=== PATIENT | male | born 1935 | race Caucasian/White ===

== ENCOUNTER 2017-10-20 01:15 | Observation (INO) | payer MEDICARE ==
[2017-10-20] MEDS ORDERED: Ondansetron HCl/PF 4 MG/2 ML Vial IVP PRN ×2 (04:35→07:43)
[2017-10-20] MEDS ORDERED: Ondansetron ODT 4 MG TAB SL PRN (04:35)
[2017-10-20] MEDS ORDERED: Sodium Chloride 0.9% 1,000 ML IV SCH (04:35)
[2017-10-20 04:45] VITALS: BMI 21.6
[2017-10-20] MEDS ORDERED: Acetaminophen 325 MG TAB PO PRN (07:43)
[2017-10-20] MEDS ORDERED: Meclizine HCl 25 MG TAB PO PRN (07:45)
[2017-10-20 08:17] LABS: #Lymphocytes 0.9 thou/uL (1.20-3.40); #Monocytes 0.4 thou/uL (0.11-0.59); #Neutrophils 4.1 thou/uL (1.40-6.50); %Basophils 0.7 % (0.0-1.0); %Eosinophils 0.4 % (0.0-10.0); %Lymphocytes 15.8 % (21.0-51.0); %Monocytes 6.8 % (0.0-10.0); %Neutrophils 76.4 % (42.0-75.0); Hemoglobin 10.1 g/dL (14.0-18.0); Mean Corpuscular HGB CONC 33.9 g/dL (32.0-36.0); Mean Corpuscular Hemoglobin 35.1 pg (27.0-31.0); Mean Platelet Volume 7.9 fL (7.4-10.4); Platelet Count 125 thou/uL (130-400); RBC Distribution Width 14.8 % (11.5-14.5); Red Blood Cell (RBC) Count 2.87 mill/uL (4.70-6.10); White Blood Cell (WBC) Count 5.4 thou/uL (4.8-10.8)
--- NOTE | 2017-10-20 08:41 | HP ---
PRIMARY CARE PROVIDER: Currently, Dr. Persaud in [place]. The patient referred to the [facility] by [facility] after transf er from [facility]. HISTORY OF PRESENT ILLNESS: The patient developed acute vertigo about 9:00 p.m. yesterday, unable to walk, crawled to the bathroom. He had a knot in his stomach. He had nausea, vomiting, sweating. H e states he was short of breath. He was taken to [facility] in [place] where he got IV medicati ons and is better. He has a minimal feeling of motion now, but no true vertigo. He had no headache and no focal weakness. 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 CURRENT MEDICATIONS: Fosamax 70 mg a week, AndroGel metered dose pump, Symbicort 164.5 two inhalatio ns twice a day, clonazepam 0.5 mg at bedtime, Flonase 50 mcg a day. PAST SURGICAL HISTORY: Left total knee replacement; left shoulder surgery; orchiectomy, 3-4 years ol d for undescended testes and transurethral resection of the prostate; bilateral foot surgery as a chi ld. FAMILY HISTORY: Mother of cancer of the lung. No other inheritable diseases in family. SOCIAL HISTORY: . FULL CODE status. next of kin. Never smoked. Very little alcohol. Has a history of asbestos exposure. 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 REVIEW OF SYSTEMS: General: No prior headaches, dizziness, fainting. Eyes: No double vision, blur red vision, flashing lights. EARS, NOSE, AND THROAT: No ear pain or drainage. No nose bleeding. H viridiana does have dysphagia. He states he had his throat stretched about a week ago here in [place]. Cardia c: No pressure chest pain. He does have some chronic low pain frequently on the right side of his c hest, just a low pain is how he describes it. He has chronic dyspnea on exertion, which is related t o his asbestos exposure. Respirations: Shortness of breath with present illness. No history of cou gh or wheezing. Gastrointestinal: See present illness, abdominal pain resolved with vomiting, no di arrhea, no melena. Genitourinary: No hematuria, dysuria, or nocturia. Musculoskeletal: No muscle or joint pains of note. Currently, he does swell a bit in his legs. Notes indentations where his so cks are noted. Neurologic: No strokes, seizures, or focal weakness. Psychiatric: No anxiety or de pression. Skin: Easy bruising, no rash. Heme/Lymph: No tender or swollen lymph nodes in axilla, i nguinal, or cervical area. PHYSICAL EXAMINATION: VITAL SIGNS: Temperature 97.6, pulse 66, respirations 24, room air sat 98, blood pressure 123/61. HEENT: Examination of his head, eyes, ears, nose, and throat reveal pupils equal, round, and reactiv e to light. Extraocular movements are intact. Sclerae white. Tympanic membranes clear. Nose clear . Throat is clear. NECK: Supple, without jugular venous distention, adenopathy, or thyromegaly. CHEST: Mildly hyperresonant, no wheezes, no focal findings. Breath sounds were good. HEART: Had a regular rate and rhythm. No murmurs or gallops were appreciated. ABDOMEN: Soft. Bowel sounds are normal. No hepatosplenomegaly, no masses, no rebound, no bruits. EXTREMITIES: Reveal no cyanosis, clubbing, or edema. PULSES: Carotid, radial, femoral, and dorsalis pedis pulses intact and symmetric. SKIN: Warm and dry without bruises or rash of note. HEME/LYMPHATIC: No tender or swollen lymph nodes in axilla, inguinal, or cervical area. No petechia l hemorrhages. NEUROLOGICAL: Cranial nerves II-XII are intact. Deep tendon reflexes symmetric. Moves all extremit ies. Toes downgoing. LABORATORY AND X-RAY FINDINGS: CT of the brain, no contrast, no acute intracranial abnormality. CT of the chest, ground-glass opacities, independent lungs, biliary sludge versus small gallstones, stab le lytic lesion. The cystic lesion is in the pancreas. Mild splenomegaly. White count 8.7, hemoglo bin 10.7, platelet count 190,000. BUN 32, creatinine 1.26, blood sugar 133. Electrolytes are normal . Calcium 8.9. Liver function tests are normal. Lipase 29. Troponin normal. EKG: Regular sinus rhythm, first-degree AV block, no acute ST-T abnormalities read by me. MEDICATIONS: Received in [place] ER, meclizine and diazepam IV. ADMITTING DIAGNOSES: Acute vertigo, abdominal pain, cholelithiasis, hypothyroidism, asbestosis. PLAN: 1. Continue meclizine p.o. as needed 2. Carotid ultrasound and abdominal ultrasound review and discuss with the patient.
[2017-10-20 08:50] LABS: ALT (SGPT) 13 U/L (8-55); AST (SGOT) 16 U/L (5-34); Albumin 3.8 g/dL (3.4-4.8); Alkaline Phosphatase 43 U/L (40-150); Anion Gap 9 mmol/L (10-20); BUN (Urea Nitrogen) 26 mg/dL (8.4-25.7); Bilirubin, Total 0.9 mg/dL (0.2-1.2); Calc. Creatinine Clearance 56 mL/min (70-130); Calcium 8.2 mg/dL (7.8-10.44); Carbon Dioxide 23 mmol/L (23-31); Chloride 110 mmol/L (98-107); Estimated GFR-MDRD 61; Globulin 2.1 g/dL (2.4-3.5); Glucose 92 mg/dL (83-110); Protein, Total 5.9 g/dL (5.8-8.1); Sodium 138 mmol/L (136-145)
[2017-10-20] MEDS ORDERED: LEVOTHYROXINE SODIUM 88 MCG PO SCH (09:00)
[2017-10-20 09:55] LABS: Troponin I Less than 0.010 ng/mL (< 0.028)
--- NOTE | 2017-10-20 10:39 | ULT ---
BILATERAL CAROTID DUPLEX ULTRASOUND: History: Dizziness. FINDINGS: There is plaque formation on either side. The peak systolic velocity in the right ICA measures 108 cm/sec with an end diastolic velocity of 29 cm/sec and systolic ratio of 0.79. The peak systolic velocity in the left ICA measures 94 cm/sec with an end diastolic velocity of 38 cm /sec and a systolic ratio of 0.57. Flow in both vertebral arteries is antegrade. IMPRESSION: No evidence of hemodynamically significant stenosis. POS: [facility]
--- NOTE | 2017-10-20 10:50 | ULT ---
COMPLETE ABDOMINAL ULTRASOUND: INDICATION: Abdominal pain. FINDINGS: There is poor visualization of the left hepatic lobe. The remaining visualized liver appears within normal limits. The right hepatic lobe measures 16.4 cm in its greatest dimension. The spleen is enl arged measuring 13 cm. There is limited visualization of the abdominal aorta. Visualized gallbladder demonstrates some mild intraluminal sludge, but no gallbladder wall thickening or pericholecystic fluid. No sonographic Borrego's sign is reported. The common bile duct measures 2.7 mm. The common bile duct measures 3.4 mm. There is limited visualization of the pancreas. The right kidney measures 9.3 x 3.6 x 3.4 cm. The left kidney measures 9.2 x 3.8 x 3.7 cm. There is a 1.6 cm cyst involving the inferior pole of the right kidney. IMPRESSION: 1. Mild hepatosplenomegaly. 2. Gallbladder sludge without sonographic evidence of acute cholecystitis. 3. Right renal cyst. POS: [facility]
[2017-10-20 12:57] LABS: Troponin I Less than 0.010 ng/mL (< 0.028)
[2017-10-20 15:14] VITALS: BP 103/53; TEMP 99.1
--- NOTE | 2017-10-20 19:23 | DIS ---
DATE OF ADMISSION: 10/20/2017 DATE OF DISCHARGE: 10/20/2017 PRIMARY CARE PROVIDER: Dr. Jang, in [place]. DISCHARGE DISPOSITION: Home. FINAL DIAGNOSES: Acute vertigo, resolved; hypothyroidism; asbestosis; lung disease; abdominal pain a nd gallbladder sludge. DISCHARGE MEDICATIONS: Meclizine 25 mg p.o. t.i.d. p.r.n., Fosamax 70 mg a day, testosterone, AndroG el and levothyroxine 88 mcg a day. ALLERGIES: None. PENDING AT THE TIME OF DISCHARGE: Nothing. CODE STATUS: FULL. HOSPITAL COURSE: The patient with acute episode of vertigo and nausea seen in [facility] am and transferred to [facility]. He has not had any vertigo. Since he got here, he was given IV medicines for vertigo in the ER, CAT scan done at [facility] of the brain, no abnormality. Caroti d ultrasounds here are normal. Unable to do MRI. Has a prosthetic knee, middle. Abdominal CT revea led sludge versus cholelithiasis. Abdominal ultrasound here showed gallbladder sludge with no eviden ce of cholecystitis. Laboratory done here; white count 5.4, hemoglobin 10.1 and platelet count 125,0 00. Creatinine 1.14, BUN 26. The patient desirous of being discharged. He has been discharged to follow up with Dr. Jang in 1 week. CONSULTATIONS: None. PROCEDURES: None. He has been given a prescription for the meclizine.
[2017-10-21] MEDS ORDERED: Levothyroxine Sodium 88 MCG TAB PO SCH (06:00)
== END 2017-10-20 19:30 | disposition home or self-care (01) ==
LOC: ERS 01:15 → 2SW 04:22
PROVIDERS: ADMIT Family Medicine; ATTEND Family Medicine
DX: R42 Dizziness and giddiness (principal); E03.9 Hypothyroidism, unspecified; J61 Pneumoconiosis due to asbestos and other mineral fibers; K82.8 Other specified diseases of gallbladder; Z79.51 Long term (current) use of inhaled steroids; Z79.899 Other long term (current) drug therapy
CPT/HCPCS: 76700; 80053; 84484 ×2; 85025; 93005; 93880; 99285; G0378; 36415

== ENCOUNTER 2021-03-28 18:41 | Observation (INO) | payer MEDICARE ==
[2021-03-28 19:22] LABS: #Eosinphils 0.1 thou/uL (0.0-0.7); #Lymphocytes 0.8 thou/uL (1.20-3.40); #Monocytes 0.5 thou/uL (0.11-0.59); #Neutrophils 3.6 thou/uL (1.40-6.50); %Basophils 0.2 % (0.0-1.0); %Eosinophils 1.9 % (0.0-10.0); %Lymphocytes 15.6 % (21.0-51.0); %Monocytes 10.3 % (0.0-10.0); Hemoglobin 9.7 g/dL (14.0-18.0); Mean Corpuscular HGB CONC 34.2 g/dL (32.0-36.0); Mean Corpuscular Volume 99.5 fL (78.0-98.0); Mean Platelet Volume 8.1 fL (7.4-10.4); Platelet Count 138 thou/uL (130-400); RBC Distribution Width 19.6 % (11.5-14.5); Red Blood Cell (RBC) Count 2.85 mill/uL (4.70-6.10)
[2021-03-28 19:28] LABS: INR-International Normal Ratio 1.2; Prothrombin Time 15.2 sec (12.0-14.7)
[2021-03-28 19:39] LABS: ALT (SGPT) 14 U/L (8-55); AST (SGOT) 31 U/L (5-34); Albumin 3.8 g/dL (3.4-4.8); Alkaline Phosphatase 120 U/L (40-110); Anion Gap 13 mmol/L (10-20); BUN (Urea Nitrogen) 32 mg/dL (8.4-25.7); Bilirubin, Total 0.9 mg/dL (0.2-1.2); CK (CPK) 41 U/L (30-200); Calc. Creatinine Clearance 0 mL/min (70-130); Calcium 8.6 mg/dL (7.8-10.44); Carbon Dioxide 23 mmol/L (23-31); Chloride 104 mmol/L (98-107); Globulin 3.1 g/dL (2.4-3.5); Glucose 109 mg/dL (83-110); Potassium 4.9 mmol/L (3.5-5.1); Protein, Total 6.9 g/dL (5.8-8.1); Sodium 135 mmol/L (136-145)
[2021-03-28] MEDS ORDERED: Aspirin Chewable 81 MG TAB ONE (21:03)
[2021-03-29 01:22] VITALS: BMI 21.9
[2021-03-29] MEDS ORDERED: Ondansetron ODT 4 MG TAB PO PRN (07:40)
[2021-03-29] MEDS ORDERED: Acetaminophen 325 MG TAB PO PRN (07:40)
[2021-03-29] MEDS ORDERED: Sodium Chloride 0.9% 1,000 ML IV SCH (07:45)
[2021-03-29 08:39] LABS: Magnesium 2.2 mg/dL (1.6-2.6)
[2021-03-29] MEDS ORDERED: Aspirin 81 mg Enteric Coated Tablet PO SCH ×2 (09:00)
[2021-03-29 11:56] LABS: Bacteria/HPF None Seen HPF (None Seen); Bilirubin Negative (Negative); Blood, Urine Negative (Negative); Clarity Clear (Clear); Glucose, Urine (Dipstick) Normal (Negative); Ketone, Urine Negative (Negative); Leukocyte Negative Leu/uL (Negative); Nitrite Negative (Negative); Protein, Urine (Dipstick) Negative (Neg-Trace); RBC/HPF 0-3 HPF (0-3); Specific Gravity, Urine 1.017 (1.002-1.036); Squamous Epithelial 0-3 HPF (0-3); WBC/HPF 0-3 HPF (0-3)
[2021-03-29 19:39] LABS: SARS-CoV-2 PCR by NAA Not Detected (NotDetected)
[2021-03-29] MEDS: Aspirin 325 mg Enteric Coated Tablet PO SCH (20:14)
[2021-03-29] MEDS ORDERED: Atorvastatin Calcium 40 MG TAB PO SCH (21:00)
[2021-03-29] MEDS ORDERED: Melatonin 3 MG TAB PO SCH (21:00)
[2021-03-29] MEDS ORDERED: Aspirin 325 mg Enteric Coated Tablet PO SCH (21:00)
[2021-03-30 04:50] LABS: #Eosinphils 0.1 thou/uL (0.0-0.7); #Lymphocytes 0.6 thou/uL (1.20-3.40); #Monocytes 0.4 thou/uL (0.11-0.59); #Neutrophils 2.7 thou/uL (1.40-6.50); %Basophils 0.5 % (0.0-1.0); %Eosinophils 3.1 % (0.0-10.0); %Lymphocytes 15.7 % (21.0-51.0); %Monocytes 10.8 % (0.0-10.0); %Neutrophils 69.8 % (42.0-75.0); Mean Corpuscular HGB CONC 34.6 g/dL (32.0-36.0); Mean Corpuscular Volume 98.1 fL (78.0-98.0); Mean Platelet Volume 8.1 fL (7.4-10.4); Platelet Count 130 thou/uL (130-400); RBC Distribution Width 19.4 % (11.5-14.5); Red Blood Cell (RBC) Count 2.64 mill/uL (4.70-6.10); White Blood Cell (WBC) Count 3.8 thou/uL (4.8-10.8)
[2021-03-30 05:15] LABS: Anion Gap 11 mmol/L (10-20); BUN (Urea Nitrogen) 24 mg/dL (8.4-25.7); Calc. Creatinine Clearance 49 mL/min (70-130); Calcium 8.2 mg/dL (7.8-10.44); Carbon Dioxide 21 mmol/L (23-31); Cardiac Risk 3.4 (Less than 4.5); Chloride 104 mmol/L (98-107); Cholesterol 122 mg/dl (< 200 Desired); Glucose 94 mg/dL (83-110); HDL Cholesterol 36 mg/dL (>60 Neg Risk); LDL Cholesterol, Calculated 71 mg/dL; Potassium 4.1 mmol/L (3.5-5.1); Sodium 132 mmol/L (136-145); Triglycerides 76 mg/dL (Less than 150)
[2021-03-30 05:51] LABS: Hemoglobin A1c 4.5 % (4.0-6.0)
[2021-03-30] MEDS ORDERED: Levothyroxine Sodium 125 MCG TAB PO SCH (06:00)
[2021-03-30] MEDS ORDERED: Gabapentin 100 MG CAP PO SCH (09:00)
[2021-03-30] MEDS ORDERED: Enoxaparin Sodium 40 MG/0.4 ML SYRINGE SC SCH (09:00)
[2021-03-30] MEDS ORDERED: Aspirin 325 mg Enteric Coated Tablet PO SCH (09:00)
[2021-03-30] MEDS: Aspirin 325 mg Enteric Coated Tablet PO SCH (10:18)
[2021-03-30 15:35] VITALS: TEMP 98.3
[2021-03-30 16:02] VITALS: BP 141/68
== END 2021-03-30 17:36 | disposition home or self-care (01) ==
LOC: ERS 18:41 → 2NO 22:44
PROVIDERS: ADMIT Student in an Organized Health Care Education/Training Program; ATTEND Internal Medicine
DX: G45.9 Transient cerebral ischemic attack, unspecified (principal); I08.2 Rheumatic disorders of both aortic and tricuspid valves; I10 Essential (primary) hypertension; E78.5 Hyperlipidemia, unspecified; C34.90 Malignant neoplasm of unspecified part of unspecified bronchus or lung; C26.1 Malignant neoplasm of spleen; J44.9 Chronic obstructive pulmonary disease, unspecified; E03.9 Hypothyroidism, unspecified; M81.0 Age-related osteoporosis without current pathological fracture; N40.0 Benign prostatic hyperplasia without lower urinary tract symptoms; Z20.822 Contact with and (suspected) exposure to COVID-19; Z79.82 Long term (current) use of aspirin; Z79.890 Hormone replacement therapy; Z79.899 Other long term (current) drug therapy; Z96.641 Presence of right artificial hip joint
CPT/HCPCS: 70450; 70551; 71045; 80048; 80053; 80061; 81001; 82550; 82607; 82746; 83036; 83735; 84443; 84484; 85025 ×2; 85610; 85730; 93005; 93306; 93880; 97116 ×2; 97139 ×4; 97530 ×2; 99285; U0003; U0005; 36415; 96372; G0378; J1650; J7050

== ENCOUNTER 2021-06-08 22:20 | Inpatient (IN) | payer MEDICARE ==
[2021-06-08 22:56] LABS: #Basophils 0.1 thou/uL (0.0-0.2); #Eosinphils 0.1 thou/uL (0.0-0.7); #Lymphocytes 1.2 thou/uL (1.20-3.40); #Monocytes 0.9 thou/uL (0.11-0.59); #Neutrophils 12.8 thou/uL (1.40-6.50); %Basophils 0.4 % (0.0-1.0); %Eosinophils 0.6 % (0.0-10.0); %Lymphocytes 7.8 % (21.0-51.0); %Monocytes 5.8 % (0.0-10.0); %Neutrophils 85.4 % (42.0-75.0); Hemoglobin 7.3 g/dL (14.0-18.0); Mean Corpuscular HGB CONC 34.3 g/dL (32.0-36.0); Mean Corpuscular Hemoglobin 34.5 pg (27.0-31.0); Mean Platelet Volume 7.3 fL (7.4-10.4); Platelet Count 158 thou/uL (130-400); RBC Distribution Width 18.8 % (11.5-14.5)
[2021-06-08 23:21] LABS: ALT (SGPT) 11 U/L (8-55); AST (SGOT) 25 U/L (5-34); Albumin 2.9 g/dL (3.4-4.8); Alkaline Phosphatase 68 U/L (40-110); Anion Gap 11 mmol/L (10-20); BUN (Urea Nitrogen) 25 mg/dL (8.4-25.7); Bilirubin, Total 0.7 mg/dL (0.2-1.2); CK (CPK) 30 U/L (30-200); Calc. Creatinine Clearance 0 mL/min (70-130); Calcium 7.5 mg/dL (7.8-10.44); Carbon Dioxide 22 mmol/L (23-31); Chloride 106 mmol/L (98-107); Globulin 2.2 g/dL (2.4-3.5); Glucose 138 mg/dL (83-110); Magnesium 1.9 mg/dL (1.6-2.6); Potassium 3.8 mmol/L (3.5-5.1); Protein, Total 5.1 g/dL (5.8-8.1); Sodium 135 mmol/L (136-145)
[2021-06-09] MEDS ORDERED: Fentanyl 100 MCG/2 ML VIAL ONE (00:36)
[2021-06-09] MEDS ORDERED: Ondansetron ODT 4 MG TAB PO PRN (01:36)
[2021-06-09] MEDS ORDERED: Dextrose 50% Abboject 50 ML SYRINGE SLOW IVP PRN (01:36)
[2021-06-09] MEDS ORDERED: Ondansetron PF 4 MG/2 ML Vial IVP PRN (01:36)
[2021-06-09] MEDS ORDERED: Dextrose 5% in Water 1,000 ML IV PRN (01:36)
[2021-06-09] MEDS ORDERED: hydrALAZINE 20 MG/ML VIAL SLOW IVP PRN (01:36)
[2021-06-09] MEDS ORDERED: Sodium Chloride 0.9% 1,000 ML IV SCH (01:45)
[2021-06-09] MEDS ORDERED: Ibuprofen 800 MG TAB PO PRN (01:48)
[2021-06-09] MEDS ORDERED: traMADol HCl 50 MG TAB PO PRN (01:48)
[2021-06-09] MEDS ORDERED: Morphine 4 MG/ML VIAL SLOW IVP PRN (01:56)
[2021-06-09 02:47] LABS: Magnesium 1.9 mg/dL (1.6-2.6)
[2021-06-09] MEDS: Acetaminophen 325 MG TAB PO SCH ×4 (04:49→22:43)
[2021-06-09 05:18] VITALS: BMI 22.1
[2021-06-09] MEDS: traMADol HCl 50 MG TAB PO PRN ×2 (07:16→17:16)
[2021-06-09] MEDS ORDERED: Magnesium Sulfate 2 GM in Sodium Chloride 0.9% 100 ML IV SCH (08:15)
[2021-06-09] MEDS: Ascorbic Acid 500 mg Chewable Tablet PO SCH ×2 (08:35→20:36)
[2021-06-09] MEDS: Famotidine 20 MG TAB PO SCH ×2 (08:35→22:31)
[2021-06-09 08:53] LABS: SARS-CoV-2 NAA Rapid Test Not Detected (NotDetected)
[2021-06-09] MEDS ORDERED: Magnesium 2 GM/50 ML 2 GM in Premix Bag 1 BAG IVPB SCH (09:00)
[2021-06-09 10:07] LABS: #Lymphocytes 0.7 thou/uL (1.20-3.40); #Monocytes 0.6 thou/uL (0.11-0.59); #Neutrophils 6.9 thou/uL (1.40-6.50); %Basophils 0.2 % (0.0-1.0); %Eosinophils 0.4 % (0.0-10.0); %Lymphocytes 8.5 % (21.0-51.0); %Monocytes 6.8 % (0.0-10.0); %Neutrophils 84.2 % (42.0-75.0); Hemoglobin 7.4 g/dL (14.0-18.0); Mean Corpuscular HGB CONC 33.6 g/dL (32.0-36.0); Mean Corpuscular Volume 98.2 fL (78.0-98.0); Mean Platelet Volume 7.5 fL (7.4-10.4); Platelet Count 123 thou/uL (130-400); RBC Distribution Width 19.3 % (11.5-14.5); Red Blood Cell (RBC) Count 2.24 mill/uL (4.70-6.10); White Blood Cell (WBC) Count 8.3 thou/uL (4.8-10.8)
[2021-06-09 10:34] LABS: Anion Gap 11 mmol/L (10-20); BUN (Urea Nitrogen) 24 mg/dL (8.4-25.7); Calc. Creatinine Clearance 64 mL/min (70-130); Calcium 7.7 mg/dL (7.8-10.44); Carbon Dioxide 23 mmol/L (23-31); Chloride 106 mmol/L (98-107); Glucose 102 mg/dL (83-110); Magnesium 2.3 mg/dL (1.6-2.6); Phosphorus 3.4 mg/dL (2.3-4.7); Potassium 4.5 mmol/L (3.5-5.1); Sodium 135 mmol/L (136-145)
[2021-06-09] MEDS ORDERED: Iopamidol-370 76% 500 ML 1 ML ONE (10:44)
[2021-06-09] MEDS: Cyclobenzaprine 10 MG TAB PO PRN ×2 (11:59→20:35)
[2021-06-09 14:33] LABS: Bacteria/HPF None Seen HPF (None Seen); Bilirubin Negative (Negative); Blood, Urine Negative (Negative); Clarity Clear (Clear); Glucose, Urine (Dipstick) Normal (Negative); Ketone, Urine Negative (Negative); Leukocyte Negative Leu/uL (Negative); Nitrite Negative (Negative); Protein, Urine (Dipstick) 20 mg/dL (Neg-Trace); RBC/HPF 0-3 HPF (0-3); Squamous Epithelial 0-3 HPF (0-3); Urobilinogen Normal mg/dL (Less than 2); WBC/HPF 0-3 HPF (0-3); pH, Urine 5.5 (5.0-9.0)
[2021-06-09 14:34] LABS: Specific Gravity, Urine 1.063 (1.002-1.036)
[2021-06-09] MEDS: Ferrous Sulfate 325 MG TAB PO SCH (17:16)
[2021-06-09] MEDS: Sodium Chloride 0.9% 1,000 ML IV SCH (17:17)
[2021-06-09] MEDS: Senokot S 8.6-50 MG TAB PO SCH (20:35)
[2021-06-09 23:23] LABS: Hemoglobin 7.7 g/dL (14.0-18.0); Platelet Count 119 thou/uL (130-400)
[2021-06-10] MEDS: Sodium Chloride 0.9% 1,000 ML IV SCH (03:18)
[2021-06-10] MEDS: Acetaminophen 325 MG TAB PO SCH ×4 (03:18→20:03)
[2021-06-10] MEDS: Levothyroxine Sodium 125 MCG TAB PO SCH (05:12)
[2021-06-10 06:07] LABS: #Eosinphils 0.1 thou/uL (0.0-0.7); #Lymphocytes 0.6 thou/uL (1.20-3.40); #Monocytes 0.6 thou/uL (0.11-0.59); #Neutrophils 7.3 thou/uL (1.40-6.50); %Basophils 0.5 % (0.0-1.0); %Eosinophils 0.8 % (0.0-10.0); %Lymphocytes 6.8 % (21.0-51.0); %Monocytes 7.4 % (0.0-10.0); %Neutrophils 84.6 % (42.0-75.0); Hemoglobin 7.7 g/dL (14.0-18.0); Mean Corpuscular Volume 97.3 fL (78.0-98.0); Mean Platelet Volume 7.4 fL (7.4-10.4); Platelet Count 121 thou/uL (130-400); RBC Distribution Width 18.9 % (11.5-14.5); Red Blood Cell (RBC) Count 2.33 mill/uL (4.70-6.10); White Blood Cell (WBC) Count 8.6 thou/uL (4.8-10.8)
[2021-06-10 06:33] LABS: Anion Gap 9 mmol/L (10-20); BUN (Urea Nitrogen) 21 mg/dL (8.4-25.7); Calc. Creatinine Clearance 64 mL/min (70-130); Calcium 7.5 mg/dL (7.8-10.44); Carbon Dioxide 22 mmol/L (23-31); Chloride 107 mmol/L (98-107); Glucose 100 mg/dL (83-110); Magnesium 2.5 mg/dL (1.6-2.6); Phosphorus 2.6 mg/dL (2.3-4.7); Potassium 4.1 mmol/L (3.5-5.1); Sodium 134 mmol/L (136-145)
[2021-06-10] MEDS: Ascorbic Acid 500 mg Chewable Tablet PO SCH ×2 (08:35→17:15)
[2021-06-10] MEDS: Ferrous Sulfate 325 MG TAB PO SCH ×2 (08:35→17:15)
[2021-06-10] MEDS: Tamsulosin HCl 0.4 MG CAP PO SCH (08:35)
[2021-06-10] MEDS: Famotidine 20 MG TAB PO SCH (08:36)
[2021-06-10] MEDS: Polyethylene Glycol 3350 17 GM Packet PO SCH (08:36)
[2021-06-10] MEDS: Senokot S 8.6-50 MG TAB PO SCH ×2 (08:36→20:03)
[2021-06-10] MEDS ORDERED: TESTOSTERONE FS SCH (09:00)
[2021-06-10] MEDS ORDERED: Gabapentin 100 MG CAP PO SCH (09:00)
[2021-06-10] MEDS: Gabapentin 100 MG CAP PO SCH ×3 (09:27→20:04)
[2021-06-10] MEDS: traMADol HCl 50 MG TAB PO SCH ×2 (11:48→17:15)
[2021-06-10] MEDS ORDERED: Acetaminophen/Codeine 30-300mg Tablet PO PRN (15:08)
[2021-06-11] MEDS: traMADol HCl 50 MG TAB PO SCH ×2 (00:13→07:08)
[2021-06-11] MEDS: Acetaminophen 325 MG TAB PO SCH ×4 (02:22→20:31)
[2021-06-11] MEDS: Levothyroxine Sodium 125 MCG TAB PO SCH (06:00)
[2021-06-11 06:56] LABS: Hemoglobin 7.7 g/dL (14.0-18.0); Mean Corpuscular Hemoglobin 34.1 pg (27.0-31.0); Mean Corpuscular Volume 97.5 fL (78.0-98.0); Mean Platelet Volume 7.3 fL (7.4-10.4); Platelet Count 142 thou/uL (130-400); RBC Distribution Width 18.9 % (11.5-14.5); Red Blood Cell (RBC) Count 2.26 mill/uL (4.70-6.10); White Blood Cell (WBC) Count 7.6 thou/uL (4.8-10.8)
[2021-06-11 07:06] LABS: Anion Gap 12 mmol/L (10-20); BUN (Urea Nitrogen) 18 mg/dL (8.4-25.7); Calc. Creatinine Clearance 62 mL/min (70-130); Calcium 7.6 mg/dL (7.8-10.44); Carbon Dioxide 20 mmol/L (23-31); Chloride 107 mmol/L (98-107); Glucose 90 mg/dL (83-110); Magnesium 2.5 mg/dL (1.6-2.6); Sodium 135 mmol/L (136-145)
[2021-06-11 07:46] LABS: Band 10 % (5-11); Eosinophils 1 % (0-10); Lymphocytes 29 % (21-51); MDiff Complete? YES; Monocytes 6 % (0-10); Myelocyte 1 % (0-0); Neutrophil 52 % (42-75); Platelet Morphology Comment Appears Adequate; Polychromasia SLIGHT = 2-3 cells (100X) (0-2/hpf)
[2021-06-11] MEDS: Senokot S 8.6-50 MG TAB PO SCH ×2 (08:12→20:32)
[2021-06-11] MEDS: Ferrous Sulfate 325 MG TAB PO SCH ×2 (08:13→17:00)
[2021-06-11] MEDS: Gabapentin 100 MG CAP PO SCH (08:13)
[2021-06-11] MEDS: Tamsulosin HCl 0.4 MG CAP PO SCH (08:14)
[2021-06-11] MEDS: Ascorbic Acid 500 mg Chewable Tablet PO SCH ×2 (08:15→17:00)
[2021-06-11] MEDS: Multivitamin W/ Minerals 1 TAB PO SCH (08:16)
[2021-06-11] MEDS: Polyethylene Glycol 3350 17 GM Packet PO SCH (08:17)
[2021-06-11] MEDS ORDERED: traMADol HCl 50 MG TAB PO PRN (10:44)
[2021-06-11] MEDS ORDERED: Scopolamine 1.5 mg/72 hour Patch TD SCH (10:45)
[2021-06-11] MEDS: Cyclobenzaprine 10 MG TAB PO PRN (13:53)
[2021-06-11] MEDS ORDERED: Melatonin 3 MG TAB PO PRN (15:40)
[2021-06-12] MEDS: Acetaminophen 325 MG TAB PO SCH ×4 (02:33→20:30)
[2021-06-12] MEDS: Levothyroxine Sodium 125 MCG TAB PO SCH (06:11)
[2021-06-12 06:12] LABS: #Eosinphils 0.1 thou/uL (0.0-0.7); #Lymphocytes 0.6 thou/uL (1.20-3.40); #Monocytes 0.4 thou/uL (0.11-0.59); #Neutrophils 4.4 thou/uL (1.40-6.50); %Basophils 0.2 % (0.0-1.0); %Eosinophils 2.7 % (0.0-10.0); %Lymphocytes 10.9 % (21.0-51.0); %Monocytes 7.7 % (0.0-10.0); %Neutrophils 78.6 % (42.0-75.0); Hemoglobin 8.5 g/dL (14.0-18.0); Mean Corpuscular HGB CONC 34.4 g/dL (32.0-36.0); Mean Corpuscular Volume 95.8 fL (78.0-98.0); Mean Platelet Volume 7.3 fL (7.4-10.4); Platelet Count 125 thou/uL (130-400); RBC Distribution Width 19.2 % (11.5-14.5); Red Blood Cell (RBC) Count 2.56 mill/uL (4.70-6.10); White Blood Cell (WBC) Count 5.6 thou/uL (4.8-10.8)
[2021-06-12] MEDS: Tamsulosin HCl 0.4 MG CAP PO SCH (08:50)
[2021-06-12] MEDS: Senokot S 8.6-50 MG TAB PO SCH ×2 (08:51→20:30)
[2021-06-12] MEDS: Ferrous Sulfate 325 MG TAB PO SCH ×2 (08:54→16:50)
[2021-06-12] MEDS: Gabapentin 100 MG CAP PO SCH (08:55)
[2021-06-12] MEDS: Ascorbic Acid 500 mg Chewable Tablet PO SCH ×2 (08:56→16:50)
[2021-06-12] MEDS: Multivitamin W/ Minerals 1 TAB PO SCH (08:56)
[2021-06-12] MEDS: Polyethylene Glycol 3350 17 GM Packet PO SCH (08:57)
[2021-06-12] MEDS ORDERED: Furosemide 40 MG/4 ML VIAL SLOW IVP SCH (16:30)
[2021-06-12 17:14] LABS: Anion Gap 12 mmol/L (10-20); BUN (Urea Nitrogen) 16 mg/dL (8.4-25.7); Calc. Creatinine Clearance 57 mL/min (70-130); Calcium 8.8 mg/dL (7.8-10.44); Carbon Dioxide 22 mmol/L (23-31); Chloride 107 mmol/L (98-107); Glucose 121 mg/dL (83-110); Magnesium 2.6 mg/dL (1.6-2.6); Phosphorus 2.5 mg/dL (2.3-4.7); Potassium 4.4 mmol/L (3.5-5.1); Sodium 137 mmol/L (136-145)
[2021-06-13] MEDS: Acetaminophen 325 MG TAB PO SCH ×2 (01:40→08:05)
[2021-06-13] MEDS: Levothyroxine Sodium 125 MCG TAB PO SCH (06:11)
[2021-06-13] MEDS: Ferrous Sulfate 325 MG TAB PO SCH (08:04)
[2021-06-13] MEDS: Ascorbic Acid 500 mg Chewable Tablet PO SCH (08:05)
[2021-06-13] MEDS: Multivitamin W/ Minerals 1 TAB PO SCH (08:05)
[2021-06-13] MEDS: Gabapentin 100 MG CAP PO SCH (08:05)
[2021-06-13] MEDS: Tamsulosin HCl 0.4 MG CAP PO SCH (08:05)
[2021-06-13] MEDS: Polyethylene Glycol 3350 17 GM Packet PO SCH (08:06)
[2021-06-13] MEDS: Senokot S 8.6-50 MG TAB PO SCH (08:08)
[2021-06-13] MEDS ORDERED: Dutasteride 0.5 MG CAP PO SCH (11:30)
[2021-06-13 11:50] LABS: #Eosinphils 0.1 thou/uL (0.0-0.7); #Lymphocytes 0.8 thou/uL (1.20-3.40); #Monocytes 0.5 thou/uL (0.11-0.59); #Neutrophils 5.3 thou/uL (1.40-6.50); %Basophils 0.1 % (0.0-1.0); %Eosinophils 1.6 % (0.0-10.0); %Monocytes 7.1 % (0.0-10.0); %Neutrophils 79.1 % (42.0-75.0); Hemoglobin 8.9 g/dL (14.0-18.0); Mean Corpuscular HGB CONC 33.2 g/dL (32.0-36.0); Mean Corpuscular Hemoglobin 32.2 pg (27.0-31.0); Mean Corpuscular Volume 96.9 fL (78.0-98.0); Mean Platelet Volume 7.1 fL (7.4-10.4); Platelet Count 172 thou/uL (130-400); RBC Distribution Width 19.5 % (11.5-14.5); Red Blood Cell (RBC) Count 2.77 mill/uL (4.70-6.10); White Blood Cell (WBC) Count 6.7 thou/uL (4.8-10.8)
[2021-06-13 11:55] VITALS: TEMP 97.6
[2021-06-13 12:00] LABS: Anion Gap 13 mmol/L (10-20); BUN (Urea Nitrogen) 16 mg/dL (8.4-25.7); Calc. Creatinine Clearance 55 mL/min (70-130); Calcium 8.7 mg/dL (7.8-10.44); Carbon Dioxide 23 mmol/L (23-31); Chloride 104 mmol/L (98-107); Glucose 99 mg/dL (83-110); Magnesium 2.4 mg/dL (1.6-2.6); Phosphorus 2.7 mg/dL (2.3-4.7); Sodium 136 mmol/L (136-145)
[2021-06-13] MEDS ORDERED: Furosemide 40 MG/4 ML VIAL SLOW IVP SCH (12:30)
[2021-06-13 15:22] VITALS: BP 116/63
[2021-06-14] MEDS ORDERED: Dutasteride 0.5 MG CAP PO SCH (09:00)
== END 2021-06-13 17:40 | disposition swing bed (61) | DRG 815 ==
LOC: ERS 22:20 → SJJU 06-09 01:46
PROVIDERS: ADMIT Surgery; ATTEND Surgery
PROC: 30233N1 Transfusion of Nonautologous Red Blood Cells into Peripheral Vein, Percutaneous Approach (ICD-10-PCS; principal; 2021-06-09)
DX: S36.039A Unspecified laceration of spleen, initial encounter (principal); C79.9 Secondary malignant neoplasm of unspecified site; Z20.822 Contact with and (suspected) exposure to COVID-19; E03.9 Hypothyroidism, unspecified; N40.0 Benign prostatic hyperplasia without lower urinary tract symptoms; E78.5 Hyperlipidemia, unspecified; I10 Essential (primary) hypertension; M81.0 Age-related osteoporosis without current pathological fracture; J44.9 Chronic obstructive pulmonary disease, unspecified; F41.9 Anxiety disorder, unspecified; Z96.652 Presence of left artificial knee joint; Z96.641 Presence of right artificial hip joint; D64.9 Anemia, unspecified; W18.30XA Fall on same level, unspecified, initial encounter; Z98.890 Other specified postprocedural states; Z79.890 Hormone replacement therapy; Z79.899 Other long term (current) drug therapy; Y92.012 Bathroom of single-family (private) house as the place of occurrence of the external cause; Z85.820 Personal history of malignant melanoma of skin
CPT/HCPCS: 36415; 36430; 70450; 71045; 71260; 74177; 80048; 80053; 81001; 82550; 83605; 83735; 83880; 84100; 84146; 84484; 85025; 86850; 86900; 86901; 93005; 94640; J1940; J2270; J3010; J3475; J7050; J7620; P9016; Q9967; U0002